=== PATIENT | male | born 1960 | race Caucasian/White ===

== ENCOUNTER 2022-05-15 08:07 | Day surgery (SDC) | payer OTHER ==
[~2022-05-15 08:07] MED LIST: Dexamethasone 4 MG/ML SDV ONE; Gabapentin 300 MG Cap PO ONE; Glycopyrrolate 0.2 MG/ML 5 ML MDV ONE; Neostigmine Methylsulfate 1 MG/ML 5 ML Syringe ONE; Ondansetron 4 MG/2 ML SDV ONE; Propofol 200 MG/20 ML SDV ONE; Rocuronium 50 MG/5 ML Vial ONE; Succinylcholine 200 MG/10 ML MDV ONE; Tamsulosin 0.4 MG Cap.ER PO SCH; fentaNYL 250 MCG/5 ML SDV ONE
[2022-05-15] MEDS: Meropenem 500 MG SDV ONE ×2 (08:07→10:30)
[2022-05-15] MEDS: Bupivacaine 0.5%/EPINEPHrine 1:200,000 50 ML MDV ONE ×2 (08:07→10:45)
[2022-05-15] MEDS ORDERED: Linezolid 600 MG/300 ML Premix Bag IRR ONE ×2 (08:08→10:30)
[2022-05-15] MEDS ORDERED: Tamsulosin 0.4 MG Cap.ER PO ONE (08:46)
[2022-05-15] MEDS ORDERED: Dextrose 5%-Lactated Ringers 1,000 ML IV SCH (09:00)
[2022-05-15] MEDS ORDERED: ceFAZolin 2 GM in Sodium Chloride 0.9% 50 ML IV ONE (09:30)
[2022-05-15] MEDS ORDERED: Ketamine 500 MG/5 ML MDV IV SCH (10:00)
[2022-05-15] MEDS ORDERED: fentaNYL 100 MCG/2 ML SDV ONE (10:00)
[2022-05-15] MEDS ORDERED: Ketamine 23 MG in Sodium Chloride 0.9% 19.77 ML IV SCH (10:00)
[2022-05-15] MEDS ORDERED: HYDROmorphone 2 MG Tab PO PRN (11:38)
[2022-05-15] MEDS ORDERED: Lactated Ringers 1,000 ML IV ONE (15:27)
[2022-05-15] MEDS ORDERED: Furosemide 20 MG/2 ML VIAL IVPUSH ONE (16:00)
== END 2022-05-15 17:00 | disposition home or self-care (01) ==
LOC: JP.SDS 08:07
PROVIDERS: ATTEND Surgery
DX: K42.0 Umbilical hernia with obstruction, without gangrene (principal); I10 Essential (primary) hypertension; G47.33 Obstructive sleep apnea (adult) (pediatric); I25.10 Atherosclerotic heart disease of native coronary artery without angina pectoris; G60.9 Hereditary and idiopathic neuropathy, unspecified; E66.01 Morbid (severe) obesity due to excess calories; E78.00 Pure hypercholesterolemia, unspecified; R73.03 Prediabetes; Z79.899 Other long term (current) drug therapy; Z68.37 Body mass index [BMI] 37.0-37.9, adult; Z79.82 Long term (current) use of aspirin; Z88.0 Allergy status to penicillin; Z88.6 Allergy status to analgesic agent; Z88.8 Allergy status to other drugs, medicaments and biological substances; Z86.16 Personal history of COVID-19
CPT/HCPCS: 51798; 88302; A9270-GY; C1781; J0171; J0330; J0690; J1100; J1940; J2020; J2185; J2405; J2704; J2710; J2795; J3010; J3490; J7120; J7121

== ENCOUNTER 2023-03-02 05:59 | Day surgery (SDC) | payer OTHER ==
[2023-03-02] MEDS ORDERED: Dextrose 5%-Lactated Ringers 1,000 ML IV SCH (06:15)
[2023-03-02] MEDS ORDERED: Propofol 200 MG/20 ML SDV ONE (07:15)
[2023-03-02] MEDS ORDERED: fentaNYL 100 MCG/2 ML SDV ONE (07:15)
[2023-03-02] MEDS ORDERED: Midazolam 1 MG/ML 2 ML SDV ONE (07:15)
== END 2023-03-02 09:40 | disposition home or self-care (01) ==
LOC: JP.SDS 05:59
PROVIDERS: ATTEND Surgery
DX: K57.30 Diverticulosis of large intestine without perforation or abscess without bleeding (principal); K57.32 Diverticulitis of large intestine without perforation or abscess without bleeding; K64.9 Unspecified hemorrhoids; G47.33 Obstructive sleep apnea (adult) (pediatric); I25.10 Atherosclerotic heart disease of native coronary artery without angina pectoris; I10 Essential (primary) hypertension; E78.5 Hyperlipidemia, unspecified; R73.03 Prediabetes; E66.9 Obesity, unspecified; Z95.5 Presence of coronary angioplasty implant and graft; Z88.0 Allergy status to penicillin; Z88.8 Allergy status to other drugs, medicaments and biological substances; Z68.39 Body mass index [BMI] 39.0-39.9, adult
CPT/HCPCS: 45378; J2250; J2704; J3010; J7121